=== PATIENT | female | born 1975 | race Caucasian/White ===

== ENCOUNTER 2018-02-10 16:18 | Emergency (ER) | payer MEDICAID ==
[~2018-02-10] VITALS: Ht 157.5 cm; Wt 84.4 kg
[2018-02-10 16:22] VITALS: Ht 157.5 cm; Wt 84.4 kg
[2018-02-10 18:44] VITALS: BP 148/93
== END 2018-02-10 18:44 | disposition home or self-care (01) ==
LOC: ED 16:18
DX: I88.9 Nonspecific lymphadenitis, unspecified (principal); L03.211 Cellulitis of face